=== PATIENT | female | born 1970 | race Hispanic/Latino ===

== ENCOUNTER → 2017-12-18 | Day surgery (SDC) | payer BC ==
[2017-12-15 12:42] LABS: ANION GAP 12.5 mmol/L (8-16); BLOOD UREA NITROGEN 15 mg/dL (7-26); BUN/CREATININE RATIO 19 (6-25); CALCIUM 9.4 mg/dL (8.4-10.2); CARBON DIOXIDE 27 mmol/L (22-29); CHLORIDE 105 mmol/L (98-107); EST GLOMERULAR FILTRATION RATE > 60 ML/MIN (60-); GLUCOSE 99 mg/dL (74-118); POTASSIUM 4.5 mmol/L (3.5-5.1); SODIUM 140 mmol/L (136-145)
[~2017-12-18] MED LIST: ACTOS15 MG PO; BUPIVACAINE HCL 0.5% 10ML MPF VIAL INJ ONE; CEFAZOLIN SOD 1 GM VIAL ONE; DEXAMETHASONE SOD PHOS INJ 4 MG/ML VIAL ONE; FENTANYL CITRATE/PF 100MCG/2 ML INJ ONE; KETOROLAC TROMETHAMINE 30 MG/ML VIAL ONE; LABETALOL HCL 5 MG/ML 20ML VIAL ONE; LANTUS 3ML100 UNITS/; LIDOCAINE HCL 2% LOCAL INJ 5 ML SDV VIAL INJ ONE; LISINOPRIL-HCT1 EAC2 PO; METFORMIN HCL500 MG PO; MIDAZOLAM HCL 2 MG/2 ML VIAL ONE; ONDANSETRON HCL INJ 2 MG/ML VIAL ONE; PROPOFOL IV EMULSION 10 MG/ML 20 ML VIAL ONE; SEVOFLURANE INHAL SOLN 250 ML PEN BTL ONE
--- NOTE | 2017-12-18 09:14 | Operative Report ---
DATE OF PROCEDURE: December 18, 2017 PREOPERATIVE DIAGNOSIS: Complications pertaining to internal fixation, left ankle. POSTOPERATIVE DIAGNOSIS: Complications pertaining to internal fixation, left ankle. PROCEDURE: Hardware removal, left ankle. DOCUMENTATION NURSE: Bruno Simental PA-C The patient was brought to the operating room for induction of anesthesia. Throughout this case, my PA's assistance was necessary for retraction of soft tissue and positioning of the extremity. This allows for efficient and technically successful execution of the operation and is considered medically necessary. INDICATIONS: The patient is a 47-year-old lady who is several years status post an ORIF of her left ankle. The distal most screws on the lateral aspect of her ankle are very prominent. They are quite painful with any pressure to the outside of her ankle. The risks and benefits of hardware removal have been discussed. She states she understands and wishes to proceed. She has 2 medial malleolar screws that are not palpable nor painful. She prefers to have these left behind. DESCRIPTION OF PROCEDURE: The patient was brought to the operating room and placed under general anesthetic. Her left lower extremity was prepped and draped in a sterile manner. A preoperative time out was performed. The extremity was exsanguinated and the proximal tourniquet was briefly inflated to 300 mmHg. The previous incision was utilized. The fracture hardware was carefully exposed. The screws were removed. The plate was elevated and removed. There were some ridges of bone that were gently contoured back to a stable margin using the rongeur forceps. The screw holes were gently curetted. The wound was thoroughly irrigated. The lag screw was also removed. An intraoperative x-ray confirmed complete hardware removal of the lateral aspect of the ankle. No iatrogenic fracture. The skin was closed with subcuticular Vicryl and interrupted nylon stitches. The 10 mL of 0.5% Marcaine without epinephrine was injected around the incision. A sterile bandage was applied. She was extubated and transported to the recovery room in stable condition. There was no blood loss and all needle and sponge counts were correct. Job#: [id number]
== END | disposition home or self-care (01) ==
LOC: OR 05:58
PROVIDERS: ATTEND Specialist
DX: T84.197A Other mechanical complication of internal fixation device of bone of left lower leg, initial encounter (principal); E11.9 Type 2 diabetes mellitus without complications; I10 Essential (primary) hypertension; E78.5 Hyperlipidemia, unspecified; F41.9 Anxiety disorder, unspecified; Y83.8 Other surgical procedures as the cause of abnormal reaction of the patient, or of later complication, without mention of misadventure at the time of the procedure; Z01.810 Encounter for preprocedural cardiovascular examination; Z01.812 Encounter for preprocedural laboratory examination; Z79.4 Long term (current) use of insulin; Z68.32 Body mass index [BMI] 32.0-32.9, adult
CPT/HCPCS: 20680; 36415 ×2; 80048; 81025; 82948; 93005; J0690; J1100; J1885; J2001; J2250; J2405; J3490; 76000